=== PATIENT | male | born 1995 | race Caucasian/White ===

== ENCOUNTER → 2021-10-24 | Emergency (ER) | payer SELFPAY ==
[~2021-10-24] VITALS: Ht 182.9 cm; Wt 63.5 kg
[2021-10-24 12:25] VITALS: BP 111/78
== END | disposition left against medical advice (07) ==
LOC: ER 12:23
DX: R07.89 Other chest pain (principal); R11.10 Vomiting, unspecified; Z53.21 Procedure and treatment not carried out due to patient leaving prior to being seen by health care provider